=== PATIENT | male | born 1945 | race Two or more races ===

== ENCOUNTER 2023-06-22 12:58 | Outpatient (AMB) | payer OTHER, MEDICAID, SELFPAY ==
--- NOTE | 2023-06-22 13:06 | HO.NEPHOV ---
Intake Vital Signs 06/22/23 13:09 Height 5 ft 7 in BMI Reason not done Patient refused/unable BP 130/80 Blood Pressure Location Lt brachial Position Sitting Pulse 76 Pulse Oximetry (%) 95 Oxygen Delivery Method Room Air Intake Visit Reasons: CKD Paid Search Marketing Strategist Required: Yes Paid Search Marketing Strategist Name: [id number] Information Interpreted: non-clinical & clinical Accompanied by: FAMILY MEMBER Allergies No Known Allergies Allergy (Verified 06/22/23 13:06) HPI HPI Comments History of Present Illness Details El was seen in office in follow up after his recent hospitalization for his hyponatremia and CKD. He continues to have Pete catheter which is draining well. His ascites is getting worse. His urine output is good. His serum sodium had improved with paracentesis and diuresis. He claims to have been compliant with low sodium diet and medication compliance. His renal function has improved. He denies PND, chest pain, orthopnea, nausea, vomiting or diarrhea. He was accompanied by his grand daughter. Paid Search Marketing Strategist was used for the entire encounter. His BP is at goal. He does not take any NSAID's. He is on lasix and Spironolactone. His recent hospitalization details were reviewed. Assessment & Plan Assessment & Plan (1) CKD (chronic kidney disease) stage 3, GFR 30-59 ml/min: Code(s): N18.30 - Chronic kidney disease, stage 3 unspecified Qualifiers: Chronic kidney disease stage 3 subtype: stage 3a (GFR 45-59) Qualified Code(s): N18.31 - Chronic kidney disease, stage 3a Plan Renal function is at baseline now; Has a Pete ( follows [facility]) Serum sodium better with diuresis and paracentesis Ascites worse- Will benefit from paracentesis( will need Albumin) Increased Spironolactone to 75 mg daily; Low Na diet/Daily weights Discussed with PCP. All questions answered; Labs ordered Time spent for care including data review/pt interview/family's questions answering-- -- documentation/ co ordinating care with PCP was 57 minutes Follow up given Orders: Orders Creatinine Today N18.30 - Chronic kidney disease, stage 3 unspecified Electrolytes Today N18.30 - Chronic kidney disease, stage 3 unspecified Blood Urea Nitrogen Today N18.30 - Chronic kidney disease, stage 3 unspecified Calcium Today N18.30 - Chronic kidney disease, stage 3 unspecified Coding Level of Care Code Est Pt Level 5 (56954) Diagnoses Stage 3a chronic kidney disease N18.31 Chronic kidney disease stage 3 subtype: stage 3a (GFR 45-59) [facility] Medical History (Updated 06/22/23 @ 19:42 by Anant Hastings MD) Cardiorenal syndrome Chronic kidney disease, stage 3b Acute kidney injury Social History (Updated 06/22/23 @ 13:09 by Germaine Benjamin MA) Alcohol intake: former Patient Tobacco Use Status: Former Tobacco user Tobacco use type: Cigarette
[2023-06-22 13:09] VITALS: BP 130/80; PULSE 76; O2SAT 95
== END 2023-06-22 13:46 | disposition home or self-care (01) ==
PROVIDERS: Visit Provider Internal Medicine Nephrology
DX: N18.31 Chronic kidney disease, stage 3a (principal); R18.8 Other ascites; E87.1 Hypo-osmolality and hyponatremia; Z96.0 Presence of urogenital implants
CPT/HCPCS: 99215

== ENCOUNTER → 2023-06-22 12:58 | Outpatient (BNVA) | payer OTHER, SELFPAY | PROVIDERS: Visit Provider Internal Medicine Nephrology | DX: N18.31 Chronic kidney disease, stage 3a (principal) | CPT/HCPCS: 99212 ==

== ENCOUNTER 2023-07-25 10:54 | Outpatient (AMB) | payer OTHER, SELFPAY ==
[2023-07-25 10:58] VITALS: BP 100/80; BMI 23.2
--- NOTE | 2023-07-25 10:58 | HO.NEPHOV_ITS ---
HPI HPI Comments History of Present Illness Details El was seen in office in follow up for his CKD. He has been getting his ascites tapped. His urine output is good. His serum sodium had improved with paracentesis and diuresis. He claims to have been compliant with low sodium diet and medication compliance. His renal function has been stable. He denies PND, chest pain, orthopnea, nausea, vomiting or diarrhea. He was accompanied by his grand daughter. Law Clerk was used for the entire encounter. His BP is at goal. He does not take any NSAID's. He is on lasix and Spironolactone. Primary care physician has initiated conversations regarding hospice. [facility] Medical History (Updated 06/22/23 @ 19:42 by Anant Hastings MD) Cardiorenal syndrome Chronic kidney disease, stage 3b Acute kidney injury Social History Alcohol intake: former Patient Tobacco Use Status: Former Tobacco user Tobacco use type: Cigarette Vital Signs 07/25/23 10:58 Height 5 ft 7 in Weight 148 lb BMI 23.2 BP 100/80 Blood Pressure Location Lt brachial Position Sitting Physical Exam Vital Signs: Last Vital Signs BP 100/80 07/25/23 10:58 BMI result Body Mass Index 23.2 Const General: comfortable and no acute distress Orientation/consciousness: patient oriented x3 HEENT Head: Yes normocephalic Mouth: Normal oral and palatal mucosa present Eyes EOM: EOMs intact bilaterally Neck Neck: Yes supple Resp Auscultation: clear to auscultation bilaterally Cardio Jugular venous distension: no JVD Rate: regular rate GI Palpation (GI): Soft to palpation Auscultation: normal bowel sounds General: Yes no CVA tenderness Back/Spine/Pelvis Back: no CVA tenderness Skin General skin exam: no rashes or lesions noted Neuro General: patient oriented x3 and moves all extremities Assessment & Plan Assessment & Plan (1) CKD (chronic kidney disease) stage 3, GFR 30-59 ml/min: Code(s): N18.30 - Chronic kidney disease, stage 3 unspecified Qualifiers: Chronic kidney disease stage 3 subtype: stage 3a (GFR 45-59) Qualified Code(s): N18.31 - Chronic kidney disease, stage 3a Plan Renal function close to baseline now; Had a Pete ( follows [facility]) Serum sodium better with diuresis and paracentesis Ascites - had been getting paracentesis( will need Albumin) C/W Spironolactone daily; Low Na diet/Daily weights All questions answered; discussions regarding hospice happening Labs ordered; follow-up as needed Orders: Orders Electrolytes 07/25/23 N18.30 - Chronic kidney disease, stage 3 unspecified Blood Urea Nitrogen 07/25/23 N18.30 - Chronic kidney disease, stage 3 unspecified Creatinine 07/25/23 N18.30 - Chronic kidney disease, stage 3 unspecified Calcium 07/25/23 N18.30 - Chronic kidney disease, stage 3 unspecified Coding Level of Care Code Est Pt Level 3 (75281) Diagnoses Stage 3a chronic kidney disease N18.31 Chronic kidney disease stage 3 subtype: stage 3a (GFR 45-59) Results Reviewed Nephrology Results: No Data to Display
== END 2023-07-25 11:21 | disposition home or self-care (01) ==
PROVIDERS: PCP Pediatrics; Visit Provider Internal Medicine Nephrology
DX: N18.31 Chronic kidney disease, stage 3a (principal)
CPT/HCPCS: 99213

== ENCOUNTER → 2023-07-25 10:54 | Outpatient (BNVA) | payer OTHER, SELFPAY | PROVIDERS: PCP Pediatrics; Visit Provider Internal Medicine Nephrology | DX: N18.31 Chronic kidney disease, stage 3a (principal) | CPT/HCPCS: 99212 ==